=== PATIENT | female | born 1965 | race Caucasian/White ===

== ENCOUNTER 2016-07-23 06:43 | Day surgery (SDC) | payer BC ==
[~2016-07-23 06:43] MED LIST: CEFAZOLIN 1 GM/D5W RTU 1 GM/50 ML RTUPB IV PRN
[2016-07-23] MEDS ORDERED: MIDAZOLAM 2 MG/2 ML INJ ONE (07:02)
[2016-07-23] MEDS ORDERED: FENTANYL CITRATE INJ/PF 100 MCG/2 ML AMPUL ONE (07:03)
[2016-07-23] MEDS ORDERED: PROPOFOL INJ 200 MG/20 ML VIAL IV ONE (07:03)
[2016-07-23] MEDS ORDERED: ONDANSETRON HCL INJ/PF 4 MG/2 ML SDV ONE (07:03)
[2016-07-23] MEDS ORDERED: LIDOCAINE 2% INJ (20 MG/ML) 20 ML MDV ONE (07:18)
[2016-07-23] MEDS ORDERED: DEXAMETHASONE SOD PHOSPHATE INJ 4 MG/1 ML VIAL ONE (07:18)
[2016-07-23] MEDS ORDERED: BUPIVACAINE HCL 0.5 % INJ/PF 30 ML SDV ONE (07:18)
[2016-07-23] MEDS: NORMAL SALINE INJ/PF 0.9% 10 ML SDV ONE ×2 (09:00)
[2016-07-23] MEDS: POLYMYXIN B SULFATE INJ 500000 UNIT VIAL ONE ×2 (09:00)
[2016-07-23] MEDS: BACITRACIN INJ 50,000 UNIT VIAL ONE ×2 (09:00)
--- NOTE | 2016-07-23 10:43 | [facility] DISCHARGE SUMMARY E ---
[facility] Discharge Summary NAME: FRANTZ GOETZ AGE: 50Y ADMITTED: 07/23/2016 DISCHARGED: 07/23/2016 SURGICAL PROCEDURE: Correction of bunion via Ricky osteotomy with capsulotomy of the second metatarsophalangeal joint, left foot. 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 SURGEON: Yani Theodore DPM INJECTOR ASSEMBLER: Roger Chen DPM HOSPITAL COURSE: The patient was admitted to [facility] with a chief complaint of a painful bunion on her left foot and that her second toe was crooked and hitting up against her left foot. The patient had undergone conservative therapy with no cessation of her symptoms. She complained that whenever she wore shoes that she was in pain. The patient desired to have these problems surgically corrected. She underwent the above surgical procedures without any complications and was transferred to the recovery room. She was discharged with a surgical shoe, an ice pack, postoperative instructions, including no weightbearing on the surgical foot, and postoperative prescriptions for cephalexin 500 mg #4, Dilaudid 4 mg #60, and Phenergan 25 mg, #3. She was given a follow-up appointment at doctor's office in 1 week. The patient was discharged from [facility]. DICTATING PHYSICIAN: YANI THEODORE D.P.M. [id number] PHY#: [id number] ID: [id number] JOB#: [id number] ACCT: [id number] cc:YANI THEODORE DPM >
--- NOTE | 2016-07-23 11:58 | [facility] OPERATIVE REPORT E ---
[facility] Operative Report NAME: FRANTZ GOETZ AGE: 50Y DATE OF SURGERY: 07/23/2016 ROOM: PREOPERATIVE DIAGNOSES: 1. Hallux abductovalgus, left foot. 2. Contracted second metatarsophalangeal joint,left foot. POSTOPERATIVE DIAGNOSES: 1. Hallux abductovalgus, left foot. 2. Contracted second metatarsophalangeal joint,left foot. SURGICAL PROCEDURE: Correction of bunion via Ricky osteotomy with internal screw fixation and capsulotomy second metatarsophalangeal joint, left foot. SURGEON: KELSI ISIDRO DPM JAVA SECURITY ENGINEER: Roger Chen DPM DESCRIPTION OF PROCEDURE: Following induction of IV and regional local anesthesia, the left foot and leg were prepped and draped in the usual sterile manner. A pneumatic tourniquet was placed around the left ankle and inflated to 250 mmHg after exsanguination of the limb via Esmarch bandage. The following surgical procedures were then performed: Correction of bunion via Ricky osteotomy with internal fixation with a capsulotomy of the second metatarsophalangeal joint left foot. Attention was directed to the dorsal aspect of the first metatarsophalangeal joint of the left foot, where an approximately 4 cm dorsal linear incision was made. The incision was deepened via sharp dissection. All bleeders were clamped and Bovied as necessary for the purposes of hemostasis. A capsular incision was made in the same manner as the original skin incision. The capsule was reflected medially and laterally from the bone. Attention was directed to the first interspace where utilizing blunt dissection, the transverse adductor tendon was identified, isolated, and sharply incised. Attention was then directed to the medial aspect of the second metatarsophalangeal joint. Utilizing sharp dissection, a capsulotomy was performed in a dorsal, medial, and plantar manner. This allowed the second metatarsophalangeal joint to take on a more anatomically correct position. Attention was then directed to the medial aspect of the first metatarsal head. Utilizing a SYLOB sagittal saw, the hypertrophied medial eminence of the first metatarsal head was osteotomized parallel to the long axis of the bone and removed in toto from the wound. Utilizing a rongeur, the hypertrophied bone at the dorsal aspect of the first metatarsal head was removed. There was also hypertrophy of bone along the base of the dorsal aspect at the base of the proximal phalanx and this was removed with the rongeur. An Ricky type osteotomy was then performed. This was performed at the medial aspect of the first metatarsal head utilizing a SYLOB sagittal saw. The apex was distal at the head and the wings were approximately 60 degrees plantar and dorsal. Utilizing the SYLOB sagittal saw with a single blade, the plantar cut was made but it was not made through and through. Then, 2 saw blades were attached and the dorsal cut was made with a double saw blade and this was through and through. Then the plantar cut was completed utilizing the single saw blade. The metatarsal head was then distracted and shifted laterally approximately 7 mm and impacted on the metatarsal. The osteotomy was then temporarily fixated with a 0.45 guidewire which was directed from distal dorsal to plantar proximal. An x-ray was taken and it was noted that the guidewire was in good position and that the first metatarsophalangeal joint was in a more anatomically correct position and the first metatarsal head was now centered over the sesamoids. A reamer measure was then threaded down the guidewire and a hole was reamed to accept the head of the screw and it was noted that a 24 x 3.0 cannulated screw would be needed. The distal aspect of the osteotomy was then drilled utilizing a 2.0 mm drill. The 20 mm x 3.0 cannulated screw was then threaded down the guidewire and tightened down until the osteotomy was stably fixated. The guidewire was then removed. Another x-ray was taken to ensure that the screw had broken through the plantar cortex, which it had. The redundant bone on the medial aspect of the first metatarsal was then osteotomized parallel to the long axis of the bone utilizing a SYLOB sagittal saw. The area was then rasped smooth utilizing a SYLOB crosscut rasp. The area was then flushed with copious amounts of an antibacterial saline solution until no bony debris was noted in the wound. Bone wax was then applied to the medial aspect of the first metatarsal head. The capsule was then coapted and maintained utilizing simple interrupted sutures of 3-0 Vicryl. It was determined that the tendon did need to be lengthened because the hallux was still slightly dorsiflexed, even when the forefoot was loaded. Several cuts were made into the tendon alternating medial and lateral and then the first metatarsophalangeal joint was plantar flexed which allowed extensor hallucis longus tendon to stretch. The sheath for the extensor hallucis longus tendon was then reattached and tacked medially utilizing simple interrupted sutures of 3-0 Vicryl. Xrays were taken and showed that the 1st and 2nd MTP jts were in anatomically correct positions, the screw is in good position and the osteotomy is stably fixated. Subcutaneous tissue was coapted and maintained utilizing simple interrupted sutures of 4-0 Vicryl and the skin was coapted and maintained utilizing a running subcuticular suture of 5-0 Vicryl The foot was then cleansed with an alcohol foam. Tape and Steri-Strips were then applied to the incision. A dry sterile dressing was then applied consisting of Alcides silk, 4 x 4, Conform, Kerlix, and Coban. The pneumatic tourniquet was released. It was noted that all digits were warm and viable. The patient was transferred to the recovery room. DICTATING PHYSICIAN: KELSI ISIDRO D.P.M. [id number] PHY#: [id number] ID: [id number] JOB#: [id number] ACCT: [id number] cc:KELSI ISIDRO DPDarcy > LONI
== END 2016-07-23 10:54 | disposition home or self-care (01) ==
LOC: SC 06:43
PROVIDERS: ATTEND Podiatrist Foot Surgery
PROC: 0QBP0ZZ Excision of Left Metatarsal, Open Approach (ICD-10-PCS; principal; 2016-07-23 07:30)
DX: M20.22 Hallux rigidus, left foot (principal); K21.9 Gastro-esophageal reflux disease without esophagitis; Z79.899 Other long term (current) drug therapy; Z85.820 Personal history of malignant melanoma of skin
CPT/HCPCS: 73620; 28296; C1769; C1713; J2250; J3490 ×4; J0690; J3010; J2405; J2704; 01480; J1100

== ENCOUNTER → 2017-04-17 | Outpatient (CLI) | payer BC ==
[2017-04-17 08:54] LABS: ABSOLUTE EOSINOPHILS # (AUTO) 0.5 10^3/uL (0.0-0.6); ABSOLUTE LYMPHOCYTES (AUTO) 1.8 10^3/uL (0.5-4.7); ABSOLUTE MONOCYTES (AUTO) 0.4 10^3/uL (0.1-1.4); ABSOLUTE NEUT (AUTO) 1.9 10^3/uL (1.7-8.2); BASOPHILS % (AUTO) 1.1 % (0-2); EOSINOPHILS % (AUTO) 10.6 % (0-6); HEMATOCRIT 41.8 % (36.0-47.0); HEMOGLOBIN 14.1 g/dL (12.0-15.5); HGB HCT DIFFERENCE 0.5; LYMPHOCYTES % (AUTO) 39.9 % (13-45); MEAN CORPUSCULAR HEMOGLOBIN 27.8 pg (27.0-33.4); MEAN CORPUSCULAR HGB CONC 33.7 g/dL (32.0-36.0); MEAN CORPUSCULAR VOLUME 83 fl (80-97); MONOCYTES % (AUTO) 7.7 % (3-13); RED BLOOD COUNT 5.06 10^6/uL (3.72-5.28); RED CELL DISTRIBUTION WIDTH 14.3 % (11.5-14.0); SEGMENTED NEUTROPHILS % (AUTO) 40.7 % (42-78); WHITE BLOOD COUNT 4.6 10^3/uL (4.0-10.5)
[2017-04-17 09:27] LABS: ALANINE AMINOTRANSFERASE 27 U/L (9-52); ALBUMIN 4.5 g/dL (3.5-5.0); ALKALINE PHOSPHATASE 52 U/L (38-126); ANION GAP 11 (5-19); ASPARTATE AMINO TRANSFERASE 27 U/L (14-36); BILIRUBIN,DIRECT 0.3 mg/dL (0.0-0.4); BILIRUBIN,TOTAL 0.6 mg/dL (0.2-1.3); BLOOD UREA NITROGEN 15 mg/dL (7-20); CALCIUM 9.3 mg/dL (8.4-10.2); CARBON DIOXIDE 29 mmol/L (22-30); CHLORIDE 105 mmol/L (98-107); CHOLESTEROL 203.67 mg/dL (0-200); Direct HDL 63 mg/dL (>40); GLUCOSE 94 mg/dL (75-110); POTASSIUM 4.2 mmol/L (3.6-5.0); SODIUM 144.5 mmol/L (137-145); TOTAL PROTEIN 7.6 g/dL (6.3-8.2); TRIGLYCERIDES 92 mg/dL (<150)
[2017-04-17 09:38] LABS: DIRECT LDL 118 mg/dL (<100)
== END ==
LOC: OD 08:01
PROVIDERS: ATTEND Internal Medicine
DX: E78.5 Hyperlipidemia, unspecified (principal); K21.9 Gastro-esophageal reflux disease without esophagitis
CPT/HCPCS: 36415; 80053; 80061; 84443; 85025

== ENCOUNTER → 2018-07-09 | Outpatient (CLI) | payer BC ==
[2018-07-09 09:07] LABS: ABSOLUTE EOSINOPHILS # (AUTO) 0.4 10^3/uL (0.0-0.6); ABSOLUTE LYMPHOCYTES (AUTO) 1.7 10^3/uL (0.5-4.7); ABSOLUTE MONOCYTES (AUTO) 0.4 10^3/uL (0.1-1.4); ABSOLUTE NEUT (AUTO) 2.4 10^3/uL (1.7-8.2); BASOPHILS % (AUTO) 0.7 % (0-2); EOSINOPHILS % (AUTO) 7.2 % (0-6); HEMATOCRIT 39.8 % (36.0-47.0); HEMOGLOBIN 13.9 g/dL (12.0-15.5); LYMPHOCYTES % (AUTO) 34.9 % (13-45); MEAN CORPUSCULAR HEMOGLOBIN 29.3 pg (27.0-33.4); MEAN CORPUSCULAR HGB CONC 34.9 g/dL (32.0-36.0); MEAN CORPUSCULAR VOLUME 84 fl (80-97); MONOCYTES % (AUTO) 8.5 % (3-13); PLATELET COUNT 190 10^3/uL (150-450); RED BLOOD COUNT 4.74 10^6/uL (3.72-5.28); RED CELL DISTRIBUTION WIDTH 13.3 % (11.5-14.0); SEGMENTED NEUTROPHILS % (AUTO) 48.7 % (42-78); TOTAL CELLS COUNTED % (AUTO) 100 %; WHITE BLOOD COUNT 4.9 10^3/uL (4.0-10.5)
[2018-07-09 09:34] LABS: ALANINE AMINOTRANSFERASE 34 U/L (9-52); ALBUMIN 4.2 g/dL (3.5-5.0); ALKALINE PHOSPHATASE 69 U/L (38-126); ANION GAP 5 (5-19); ASPARTATE AMINO TRANSFERASE 29 U/L (14-36); BILIRUBIN,DIRECT 0.1 mg/dL (0.0-0.4); BILIRUBIN,TOTAL 0.4 mg/dL (0.2-1.3); BLOOD UREA NITROGEN 16 mg/dL (7-20); CALCIUM 9.1 mg/dL (8.4-10.2); CARBON DIOXIDE 28 mmol/L (22-30); CHLORIDE 107 mmol/L (98-107); GLUCOSE 93 mg/dL (75-110); POTASSIUM 4.3 mmol/L (3.6-5.0); SODIUM 140.3 mmol/L (137-145); TOTAL PROTEIN 6.7 g/dL (6.3-8.2); TRIGLYCERIDES 167 mg/dL (<150)
[2018-07-09 09:45] LABS: DIRECT LDL 125 mg/dL (<100)
[2018-07-09 09:52] LABS: VLDL CHOLESTEROL 33.4 mg/dL (10-31)
== END ==
LOC: OD 07:59
PROVIDERS: ATTEND Internal Medicine
DX: E78.5 Hyperlipidemia, unspecified (principal); B35.1 Tinea unguium
CPT/HCPCS: 36415; 80053; 80061; 84443; 85025

== ENCOUNTER → 2019-08-02 | Outpatient (CLI) | payer BC ==
[2019-08-02 09:47] LABS: ABSOLUTE EOSINOPHILS # (AUTO) 0.4 10^3/uL (0.0-0.6); ABSOLUTE MONOCYTES (AUTO) 0.3 10^3/uL (0.1-1.4); ABSOLUTE NEUT (AUTO) 2.1 10^3/uL (1.7-8.2); BASOPHILS % (AUTO) 0.7 % (0-2); EOSINOPHILS % (AUTO) 7.3 % (0-6); HEMATOCRIT 43.2 % (36.0-47.0); LYMPHOCYTES % (AUTO) 41.9 % (13-45); MEAN CORPUSCULAR HEMOGLOBIN 29.5 pg (27.0-33.4); MEAN CORPUSCULAR HGB CONC 34.8 g/dL (32.0-36.0); MEAN CORPUSCULAR VOLUME 85 fl (80-97); MONOCYTES % (AUTO) 6.4 % (3-13); PLATELET COUNT 196 10^3/uL (150-450); RED BLOOD COUNT 5.09 10^6/uL (3.72-5.28); RED CELL DISTRIBUTION WIDTH 13.3 % (11.5-14.0); SEGMENTED NEUTROPHILS % (AUTO) 43.7 % (42-78); TOTAL CELLS COUNTED % (AUTO) 100 %; WHITE BLOOD COUNT 4.8 10^3/uL (4.0-10.5)
[2019-08-02 10:23] LABS: ALBUMIN 4.5 g/dL (3.5-5.0); ALKALINE PHOSPHATASE 70 U/L (38-126); ANION GAP 8 (5-19); ASPARTATE AMINO TRANSFERASE 29 U/L (14-36); BILIRUBIN,TOTAL 0.6 mg/dL (0.2-1.3); BLOOD UREA NITROGEN 17 mg/dL (7-20); CALCIUM 9.4 mg/dL (8.4-10.2); CARBON DIOXIDE 27 mmol/L (22-30); CHLORIDE 105 mmol/L (98-107); CHOLESTEROL 147.92 mg/dL (0-200); GLUCOSE 88 mg/dL (75-110); POTASSIUM 4.1 mmol/L (3.6-5.0); TOTAL PROTEIN 7.2 g/dL (6.3-8.2); TRIGLYCERIDES 95 mg/dL (<150)
[2019-08-02 10:34] LABS: DIRECT LDL 79 mg/dL (<100)
== END ==
LOC: OD 08:52
PROVIDERS: ATTEND Internal Medicine
DX: E78.5 Hyperlipidemia, unspecified (principal); R53.83 Other fatigue; K21.9 Gastro-esophageal reflux disease without esophagitis; E03.9 Hypothyroidism, unspecified
CPT/HCPCS: 36415; 80053; 80061; 84443; 85025

== ENCOUNTER → 2019-08-02 | Outpatient (CLI) | payer BC ==
--- NOTE | 2019-08-02 13:13 | WOMENS IMAGING REPORT ---
EXAM DESCRIPTION: BONE DENSITY HIP/SPINE COMPLETED DATE/TIME: 08/02/2019 1:03 pm REASON FOR STUDY: N95.9 UNSPECIFIED MENOPAUSAL AND PERIMENOPAUSAL DISORDER N95.9 UNSPECIFIED MENOPA USAL AND PERIMENOPAUSAL DISORDER COMPARISON: None. TECHNIQUE: Dual-Energy X-ray Absorptiometry (DEXA) of the AP Spine and Hip. LIMITATIONS: None. FINDINGS: LUMBAR SPINE: The bone mineral density (BMD) measured from L1-L4 in the AP projection correlates with a T-score of 0.2, which is normal as defined by the World Health Organization. BMD Change vs Baseline: N/A HIP: The bone mineral density (BMD) measured in the left hip correlates with a T-score of -1.3 in the neck , which is osteopenia as defined by the World Health Organization. BMD Change vs Baseline: N/A 10 year Fracture Risk Assessment: Major Osteoporotic Fracture: 5.6% without prior fracture. 9.9% with prior fracture. Hip Fracture: 0.3% without prior fracture. 0.7% with prior fracture. IMPRESSION: 1. LUMBAR SPINE WHO CLASSIFICATION: NORMAL. 2. HIP WHO CLASSIFICATION: OSTEOPENIA. OVERALL ASSESSMENT: WHO CLASSIFICATION: OSTEOPENIA. COMMENT: The World Health Organization defines low BMD as follows: T-score: Normal: Greater than -1.0 Osteopenia: Between -1.0 and -2.5 Osteoporosis: Less than -2.5 without fractures Established osteoporosis: Less than -2.5 with fractures In general, you may wish to consider: Diagnosis Treatment Follow-up DEXA Normal BMD Prevention 2-3 years Osteopenia Prevention/Therapy 1-2 years Osteoporosis Therapy Yearly TECHNICAL DOCUMENTATION: JOB ID: [id number] 2010 [employer]- All Rights Reserved Reading location - IP/workstation name: [email or web address]
== END ==
LOC: WI 12:28
PROVIDERS: ATTEND Internal Medicine
DX: N95.9 Unspecified menopausal and perimenopausal disorder (principal); M85.88 Other specified disorders of bone density and structure, other site
CPT/HCPCS: 77080